=== PATIENT | female | born 1950 | race Caucasian/White ===

== ENCOUNTER 2024-10-08 22:45 | Emergency (ER) | payer SELFPAY ==
[~2024-10-08] VITALS: Ht 167.6 cm; Wt 72.0 kg
[2024-10-08 22:49] VITALS: BP 114/61; PULSE 90; RESP 18; TEMP 97.7; O2SAT 97
== END 2024-10-09 00:41 | disposition home or self-care (01) ==
LOC: ER 22:45
DX: T51.0X1A Toxic effect of ethanol, accidental (unintentional), initial encounter (principal); R11.2 Nausea with vomiting, unspecified; Z91.041 Radiographic dye allergy status; Z88.8 Allergy status to other drugs, medicaments and biological substances; X58.XXXA Exposure to other specified factors, initial encounter
CPT/HCPCS: 99283